=== PATIENT | male | born 1985 | race Caucasian/White ===

== ENCOUNTER 2017-12-02 17:36 | Emergency (ER) | payer MEDICARE, MEDICAID ==
[~2017-12-02] VITALS: Ht 185.4 cm; Wt 115.9 kg
[~2017-12-02 17:36] MED LIST: RISP4TAB34 PO; ZOLP10TA PO
[2017-12-02 17:57] VITALS: BP 125/80
[2017-12-02] MEDS ORDERED: BENZ2AMP4 PO (18:26)
[2017-12-02] MEDS ORDERED: LORA1TAB PO (18:26)
[2017-12-02] MEDS ORDERED: DIVA500T2 PO (18:26)
[2017-12-02] MEDS ORDERED: CITA40TA12 PO (18:26)
[2017-12-02] MEDS ORDERED: SODIUM CHLORIDE FLUSH 10ML SYR IVF ONE (18:30)
== END 2017-12-02 19:18 | disposition home or self-care (01) ==
LOC: ED 19:12
DX: S43.034A Inferior dislocation of right humerus, initial encounter (principal); F20.9 Schizophrenia, unspecified; Z01.818 Encounter for other preprocedural examination; F17.200 Nicotine dependence, unspecified, uncomplicated; W18.39XA Other fall on same level, initial encounter; Y93.89 Activity, other specified; Y92.098 Other place in other non-institutional residence as the place of occurrence of the external cause; Y99.8 Other external cause status
CPT/HCPCS: 23650; 99284